=== PATIENT | male | born 1990 | race Two or more races ===

== ENCOUNTER 2020-08-14 13:16 | Emergency (ER) | payer OTHER, SELFPAY ==
[2020-08-14 13:54] VITALS: BP 135/83; PULSE 116; RESP 22; TEMP 37.4; O2SAT 96
--- NOTE | 2020-08-14 14:18 | ED_ITS ---
HPI - URI/Sore Throat General Chief Complaint: Upper Respiratory Symptoms Stated Complaint: FEVER Time Seen by Provider: 08/14/20 14:08 Source: patient Mode of arrival: ambulatory Limitations: no limitations History of Present Illness HPI Narrative: 30-year-old male previously healthy here with subjective fevers, chills, body aches, cough and vomiting for the last 2 days. Denies sick contacts. No abdominal pain, diarrhea, shortness of breath or chest pain. MD elicited complaint: fever and cough Onset (ago): day(s) (2 days ) Consistency: intermittent Severity: mild Able to tolerate fluids by mouth: Yes Exacerbating factors: nothing Relieving factors: nothing Associated symptoms: denies other symptoms Treatments prior to arrival: none Related Data Previous Rx's Medication Instructions Recorded acetaminophen 650 mg PO Q6H PRN #20 cap 08/14/20 ibuprofen 600 mg PO Q8H PRN #20 tab 08/14/20 ondansetron 4 mg PO Q6H PRN #10 tab 08/14/20 Allergies Allergy/AdvReac Type Severity Reaction Status Date / Time SEAFOOD Allergy Unknown SWELLING Uncoded 07/01/20 17:54 Review of Systems Constitutional: Constitutional: Reports no additional constitutional complaints, Reports body ache(s), Reports chills, Reports fever(s), Denies headache(s) and Denies weakness Eyes: Eyes: Reports no additional eye complaints and Denies change in vision ENT: Reports system reviewed and no additional complaints, except as documented, Denies otalgia, Denies headache(s), Denies nasal discharge and Denies sore throat Cardiovascular: Cardiovascular: Reports no additional cardiovascular complaints, Denies chest pain, Denies leg edema and Denies dyspnea Respiratory: Respiratory: Reports no additional respiratory complaints, Reports cough and Denies dyspnea Gastrointestinal: Gastrointestinal: Reports no additional gastrointestinal complaints, Denies abdominal pain, Denies diarrhea, Reports nausea and Reports vomiting Genitourinary: Genitourinary: Reports no additional male genitourinary complaints, Denies urinary frequency, Denies urinary hesitancy, Denies urinary incontinence and Denies urinary urgency Musculoskeletal: Musculoskeletal: Reports no additional musculoskeletal complaints, Denies back pain, Denies arthralgias, Denies joint swelling, Denies numbness and Denies tingling Integumentary/Breasts: Skin/Breast: Reports system reviewed and no additional complaints, except as docu and Denies rash Neurologic: Reports system reviewed and no additional complaints, except as documented, Denies Abnormal speech present, Denies headache(s), Denies numbness, Denies tingling and Denies weakness PMFSH Past Medical History Attestation statement: The following information was validated with the patient. Source: obtained from family and nursing notes reviewed Social History Social History Alcohol intake: never Use of substances other than those prescribed or required for medical reasons: No Advance Directives: No Advance Directives Information Provided: No Physical Exam Vital Signs: Vital Signs: Vital Signs Temp Pulse Resp BP Pulse Ox 08/14/20 14:36 98 08/14/20 13:54 99.4 F 116 H 22 H 135/83 96 Const: General: cooperative, healthy appearing, comfortable and no acute distress Orientation/consciousness: patient oriented x3 Limitations: no limitations HENMT: Head: Yes normal to inspection Ears: hearing grossly normal bilaterally General nose exam: Normal external nose present Face and sinus: Yes normal facial exam Mouth: Normal oral and palatal mucosa present Throat: Yes posterior oropharynx normal Eyes: General: appearance normal, both eyes and all related structures Pupils: Equal, round and reactive pupils present Neck: Neck: Yes normal visual inspection Chest: Chest palpation & inspection: normal inspection of the chest Resp: Effort & Inspection: normal respiratory effort Auscultation: clear to auscultation bilaterally Cardio: Rate: regular rate Rhythm: regular rhythm Peripheral pulses: Peripheral pulses 2+ throughout GI: Inspection: Yes normal to inspection Palpation (GI): Soft to palpation and nontender Auscultation: normal bowel sounds Back/Spine/Pelvis: Thoracic/Lumbar Spine: thoracic and lumbar spine normal to inspection Skin: General skin exam: no rashes or lesions noted Neuro: General: patient oriented x3, no focal motor deficits and normal sensation to monofilament Cranial nerves: Yes Equal, round and reactive pupils present Cognition (Neuro): normal cognition Speech: No Abnormal speech present Gait exam (Neuro): Normal gait present Motor exam (neuro): 5/5 motor strength present throughout Extrem: General: Yes normal to inspection Course Course Course Narrative: Flu-like symptoms x2 days. Well-appearing, mildly tachycardic. Has a low-grade fever. Patient received Zofran sublingual and Tylenol p.o. and was able to tolerate liquids prior to discharge home. COVID testing sent. Reviewed worrisome signs and symptoms when to return to the [facility] department. Comfortable discharge home. Discharge Plan Discharge Clinical Impression: Viral infection Patient Disposition: Home, Self-Care Instructions: Viral Syndrome (ED) Additional Instructions: We have tested you today for COVID 19. Test results take 1-2 days and we will call you with the results negative or positive. Take tylenol or motrin if able as needed for pain or fever. Stay well hydrated with fluids like water, gatorade and/or powerade. Wash hands at home. If living with others try to self isolate if possible. If unable wear a mask around others in your home and wash hands frequently. If COVID test is positive you will need to self isolate for a total of 14 days from when your symptoms started. You may return to work sooner if testing is negative and all symptoms resolved >72 hours. You should return to the emergency department for severe shortness of breath, chest pain or fever which does not respond to both tylenol and motrin at home. Prescriptions: New ibuprofen 600 mg tablet 600 mg PO Q8H PRN (Reason: fever or pain) Qty: 20 RF: 0 acetaminophen 325 mg capsule 650 mg PO Q6H PRN (Reason: fever or pain) Qty: 20 RF: 0 ondansetron 4 mg tablet,disintegrating 4 mg PO Q6H PRN (Reason: nausea and vomiting) Qty: 10 RF: 0 Referrals: Luis Brown MD [Primary Care Provider] - 2 days Interventions: ED Discharge Assessment Last Done: 08/14/20 15:57 Discharge Date/Time: 08/14/20 15:59
[2020-08-14] MEDS: Acetaminophen 325 MG TABLET 650 MG PO (14:33)
[2020-08-14 14:36] VITALS: O2SAT 98
== END 2020-08-14 15:59 | disposition home or self-care (01) ==
PROVIDERS: Nurse Practitioner Family; Emergency Provider Emergency Medicine; PCP Family Medicine
DX: B34.9 Viral infection, unspecified (principal); R50.9 Fever, unspecified; M79.10 Myalgia, unspecified site; Z11.59 Encounter for screening for other viral diseases
CPT/HCPCS: 99283; 99284; U0003

== ENCOUNTER 2020-09-03 08:28 | Outpatient (REF) | payer OTHER, SELFPAY | END 2020-09-03 08:29 | disposition home or self-care (01) | LOC: HO.LAB 08:28 | PROVIDERS: Visit Provider Internal Medicine | DX: Z20.828 Contact with and (suspected) exposure to other viral communicable diseases (principal) | CPT/HCPCS: C9803; U0003 ==

== ENCOUNTER 2020-12-24 10:00 | Outpatient (RCR) | payer OTHER, SELFPAY | END 2021-04-11 14:32 | disposition home or self-care (01) | LOC: HO.PTCHIC 10:00 | PROVIDERS: PCP Nurse Practitioner Family; Visit Provider Orthopaedic Surgery | DX: M25.811 Other specified joint disorders, right shoulder (principal) | CPT/HCPCS: 97110; 97140; 97162 ==

== ENCOUNTER 2021-01-18 10:00 | Outpatient (RCR) | payer OTHER, SELFPAY | END 2021-02-18 11:58 | disposition home or self-care (01) | LOC: HO.PTCHIC 10:00 | PROVIDERS: PCP Nurse Practitioner Family; Visit Provider Physician Assistant | DX: M54.16 Radiculopathy, lumbar region (principal); M54.5 Low back pain | CPT/HCPCS: 97110; 97112; 97140; 97161 ==

== ENCOUNTER 2021-03-22 06:19 | Emergency (ER) | payer OTHER, SELFPAY ==
--- NOTE | ~2021-03-22 | XR_ITS ---
EXAMINATION: XR CHEST CLINICAL INFORMATION: Chest pain. COMPARISON: Multiple priors, most recent chest radiograph dated 12/22/2019. TECHNIQUE: Frontal view of the chest was obtained. FINDINGS: The lungs are clear. The cardiomediastinal silhouette is normal in size. There is no pleural effusion or pneumothorax. No acute osseous abnormality. XR/XR chest 1V IMPRESSION: No acute cardiopulmonary findings.
[2021-03-22 06:28] VITALS: BP 148/83; PULSE 94; RESP 17; TEMP 36.9; O2SAT 96; BMI 29.0
--- NOTE | 2021-03-22 06:35 | ECG_ITS ---
Test Reason : SOB Blood Pressure : / mmHG Vent. Rate : 088 BPM Atrial Rate : 088 BPM P-R Int : 130 ms QRS Dur : 080 ms QT Int : 362 ms P-R-T Axes : 069 076 054 degrees QTc Int : 438 ms Normal sinus rhythm Normal ECG When compared with ECG of 11-SEP-2015 06:02, No significant change was found Referred By: Alessandra Dee Electronically Signed By:PILY MEZA MD
--- NOTE | 2021-03-22 06:35 | ED.CHESTPAIN ---
HPI - Chest Pain General Chief Complaint: Dyspnea Stated Complaint: SOB/Chest pain Time Seen by Provider: 03/22/21 06:34 Source: patient Mode of arrival: ambulatory Limitations: no limitations History of Present Illness MD complaint: other (shortness of breath) Pertinent past history: asthma Onset (ago): day(s) (1) Timing of current episode: constant Prior episodes: No Onset: during rest and during exertion Pain location: substernal Pain radiation: none Severity: mild Quality: heaviness Relieving factors: nothing Exacerbating factors: inspiration Context: recent surgery (had back surgery on Sunday - localized reported his discs were shaved down) Associated symptoms: dyspnea Treatment prior to arrival: other (some mild relief with his INH) Related Data Previous Rx's Medication Instructions Recorded acetaminophen 650 mg PO Q6H PRN #20 cap 08/14/20 ibuprofen 600 mg PO Q8H PRN #20 tab 08/14/20 ondansetron 4 mg PO Q6H PRN #10 tab 08/14/20 albuterol sulfate 2.5 mg INHALATION Q4-6H PRN #75 ml 03/22/21 prednisone 40 mg PO DAILY 4 Days #8 tab 03/22/21 Allergies Allergy/AdvReac Type Severity Reaction Status Date / Time SEAFOOD Allergy Unknown SWELLING Uncoded 07/01/20 17:54 Review of Systems Review of Systems: Constitutional : No Weight loss, No Fever, No Chills ENT/Mouth : No sore throat, No Rhinorrhea Eyes: No Eye Pain, No Swelling Cardiovascular : pos Chest Pain, pos SOB, no Dyspnea on Exertion, No Orthopnea, No Edema, No Palpitations Respiratory : No Cough, No Sputum Gastrointestinal : no Nausea, No Vomiting, No Diarrhea, No abdominal Pain, No Hematochezia, No Melena Genitourinary : No Dysuria, No Urinary Frequency Musculoskeletal : No joint pain, No Myalgias, No Joint Swelling Skin : No Skin Lesions, No rash Neuro : No Weakness, No Numbness, No Dizziness, No Headache Psych : No Anxiety/Panic, No Depression Heme/Lymph: No Bruising, No Lymphadenopathy Endocrine : No Polyuria, No Polydipsia All other systems reviewed and are negative PMFSH Past Medical History Attestation statement: The following information was validated with the patient. Medical History Asthma Herniated disc Surgical History Previous back surgery Social History Social History Alcohol intake: never Patient Tobacco Use Status: Never used Tobacco Use of substances other than those prescribed or required for medical reasons: Yes Substance Use Type: Marijuana Substance Use Frequency: Occasionally Advance Directives: No Physical Exam Vital Signs: Vital Signs: Last Vital Signs Temp 98.4 F 03/22/21 06:28 Pulse 99 03/22/21 08:49 Resp 18 03/22/21 08:00 BP 148/83 H 03/22/21 06:28 Pulse Ox 96 03/22/21 06:28 Body Mass Index 29.0 Appearance: Alert. Oriented X3. No acute distress. Eyes: Pupils equal, round and reactive to light. ENT: Pharynx normal. Neck: Normal inspection. Neck supple. CVS: Normal heart rate and rhythm. Pulses normal. Respiratory: No respiratory distress. Breath sounds decreased throughout, diffuse end exp wheezes Abdomen: Soft and nontender. Back: incision is c/d/i healing well Skin: Skin warm and dry. Normal skin color. Normal skin turgor. Extremities: No lower extremity edema. No calf ttp Neuro: Oriented X 3. No motor deficit. No sensory deficit. Course Course Course Narrative: negative troponin, EKG and ddimer - feeling better with treatments very faint end exp wheezes, no hypoxia, will recheck in a little bit much better, repeat neb 2.5mg ordered clear lungs, stable for DC at this time MDM - Chest Pain MDM Narrative Medical decision making narrative: 30 yo male with c/o dyspnea and chest pain he has wheezes suspect that his asthma is exacerbated will give 5mg neb, low dose IV steroids, IV magnesium given his chest tightness it does seem related to his reactive airways disease but given recent surgery and immobility will obtain EKG, troponin x 1, ddimer - dispo per results and findings. Lab Data Result diagrams: 03/22/21 06:51 03/22/21 06:51 Labs: Lab Results 03/22/21 03/22/21 03/22/21 Range/Units 06:51 06:51 06:51 WBC 14.0 H (4.8-10.8) X10*3/uL RBC 5.19 (4.60-5.80) X10*6/uL Hgb 16.1 (14.0-18.0) g/dl Hct 45.5 (42-52) % MCV 87.7 (80-98) fL MCH 31.0 (27.0-33.0) pg MCHC 35.4 (31.0-36.0) g/dl RDW 12.0 (11.0-16.0) % Plt Count 236 (160-400) X10*3/uL MPV 10.5 (9.4-12.4) fL Immature Gran % (Auto) 0.3 (0.0-0.4) % Neut % (Auto) 76.0 H (45-73) % Lymph % (Auto) 11.5 L (20-40) % [place] % (Auto) 6.9 (2-11) % Eos % (Auto) 5.1 H (0-4) % Baso % (Auto) 0.2 (0-2) % Lymph # (Auto) 1.6 (1.2-4.9) X10*3/uL [place] # (Auto) 1.0 (0.1-1.2) X10*3/uL Eos # (Auto) 0.7 H (0.0-0.4) X10*3/uL Baso # (Auto) 0.0 (0.0-0.2) X10*3/uL Abs Immat Gran (auto) 0.04 H (0.00-0.03) X10*3/uL Absolute Neuts (auto) 10.6 H (2.0-8.3) X10*3/uL Absolute Nucleated RBC 0.000 (0.0-0.012) X10*3/uL Nucleated RBC % (auto) 0.0 (0.0-0.2) /100WBC D-Dimer < 200 NG/ML Sodium 140 (135-145) mmol/L Potassium 4.2 (3.3-5.1) mmol/L Chloride 108 (96-108) mmol/L Carbon Dioxide 26 (22-29) mmol/L Anion Gap 10 L (12-20) BUN 8 L (9-16) mg/dL Creatinine 0.83 (0.5-1.4) mg/dL Estim Creat Clear Calc 160.2 Estimated GFR > 60 Random Glucose 107 (60-115) mg/dL Calcium 9.6 (8.4-10.2) mg/dL Magnesium (1.6-2.6) mg/dL Total Bilirubin (0.0-1.0) mg/dL Direct Bilirubin (0.0-0.5) mg/dL AST (5-37) U/L ALT (0-40) U/L Alkaline Phosphatase (39-117) U/L Troponin I High Sens (<3.5-35.0) ng/L Total Protein (6.5-8.0) g/dL Albumin (3.5-5.0) g/dL Lipase (8-78) U/L 03/22/21 03/22/21 Range/Units 06:51 06:51 WBC (4.8-10.8) X10*3/uL RBC (4.60-5.80) X10*6/uL Hgb (14.0-18.0) g/dl Hct (42-52) % MCV (80-98) fL MCH (27.0-33.0) pg MCHC (31.0-36.0) g/dl RDW (11.0-16.0) % Plt Count (160-400) X10*3/uL MPV (9.4-12.4) fL Immature Gran % (Auto) (0.0-0.4) % Neut % (Auto) (45-73) % Lymph % (Auto) (20-40) % [place] % (Auto) (2-11) % Eos % (Auto) (0-4) % Baso % (Auto) (0-2) % Lymph # (Auto) (1.2-4.9) X10*3/uL [place] # (Auto) (0.1-1.2) X10*3/uL Eos # (Auto) (0.0-0.4) X10*3/uL Baso # (Auto) (0.0-0.2) X10*3/uL Abs Immat Gran (auto) (0.00-0.03) X10*3/uL Absolute Neuts (auto) (2.0-8.3) X10*3/uL Absolute Nucleated RBC (0.0-0.012) X10*3/uL Nucleated RBC % (auto) (0.0-0.2) /100WBC D-Dimer NG/ML Sodium (135-145) mmol/L Potassium (3.3-5.1) mmol/L Chloride (96-108) mmol/L Carbon Dioxide (22-29) mmol/L Anion Gap (12-20) BUN (9-16) mg/dL Creatinine (0.5-1.4) mg/dL Estim Creat Clear Calc Estimated GFR Random Glucose (60-115) mg/dL Calcium (8.4-10.2) mg/dL Magnesium 1.8 (1.6-2.6) mg/dL Total Bilirubin 1.1 H (0.0-1.0) mg/dL Direct Bilirubin 0.3 (0.0-0.5) mg/dL AST 29 (5-37) U/L ALT 63 H (0-40) U/L Alkaline Phosphatase 118 H (39-117) U/L Troponin I High Sens < 3.5 (<3.5-35.0) ng/L Total Protein 6.9 (6.5-8.0) g/dL Albumin 4.4 (3.5-5.0) g/dL Lipase 24 (8-78) U/L ECG Data ECG #1: Attestation: I personally reviewed and interpreted this ECG as follows: ECG interpretation date: 03/22/21 ECG interpretation time: 06:52 Interpretation: Rate: 88 Rhythm: NSR [place]: normam Normal P waves. Normal CHARLES. Normal QRS complex. ST T wave : normal no NIRMAL qTC: normal prior studies: no acute ischemia The study has been interpreted contemporaneously by me. . Discharge Plan Discharge Clinical Impression: Asthma with exacerbation Qualifiers: Asthma severity: moderate Asthma persistence: persistent Qualified Code(s): J45.41 - Moderate persistent asthma with (acute) exacerbation Patient Disposition: Home, Self-Care Instructions: Asthma (ED) Additional Instructions: return to ED for any worsening symptoms or concerns Prescriptions: New prednisone 20 mg tablet 40 mg PO DAILY 4 Days Qty: 8 RF: 0 albuterol sulfate 2.5 mg /3 mL (0.083 %) solution for nebulization 2.5 mg inhalation Q4-6H PRN (Reason: shortness of breath or wheezing) Qty: 75 RF: 0 No Action ibuprofen 600 mg tablet 600 mg PO Q8H PRN (Reason: fever or pain) Qty: 20 RF: 0 acetaminophen 325 mg capsule 650 mg PO Q6H PRN (Reason: fever or pain) Qty: 20 RF: 0 ondansetron 4 mg tablet,disintegrating 4 mg PO Q6H PRN (Reason: nausea and vomiting) Qty: 10 RF: 0 Referrals: Anatoly Messer NP [Primary Care Provider] - 2 days
[2021-03-22 06:55] LABS: MANUAL DIFF FLAG NO
[2021-03-22 06:58] LABS: Basophils Percent Auto 0.2 % (0-2); Eosinophils Absolute Auto 0.7 X10*3/uL (0.0-0.4); Eosinophils Percent Auto 5.1 % (0-4); Hematocrit 45.5 % (42-52); Hemoglobin 16.1 g/dl (14.0-18.0); Imm Gran Abs Auto 0.04 X10*3/uL (0.00-0.03); Imm Gran Pct Auto 0.3 % (0.0-0.4); Lymphocytes Absolute Auto 1.6 X10*3/uL (1.2-4.9); Lymphocytes Percent Auto 11.5 % (20-40); Mean Corpuscular HGB Conc 35.4 g/dl (31.0-36.0); Mean Corpuscular Volume 87.7 fL (80-98); Mean Platelet Volume 10.5 fL (9.4-12.4); Monocytes Percent Auto 6.9 % (2-11); Neutrophils Absolute Auto 10.6 X10*3/uL (2.0-8.3); Platelet Count 236 X10*3/uL (160-400); Red Blood Count 5.19 X10*6/uL (4.60-5.80)
[2021-03-22] MEDS: Albuterol Sulfate (0.083%) 2.5 MG/3 ML VIAL.NEB 5 MG INHALE (06:58)
[2021-03-22 06:59] VITALS: PULSE 84; O2SAT 97
[2021-03-22] MEDS: methylPREDNISolone Sod Succ 125 MG/2 ML VIAL 60 MG IVPUSH (07:08)
[2021-03-22] MEDS: Magnesium Sulfate/H2O 2 GM/50 ML PIGGYBACK IV (07:08)
[2021-03-22 07:13] LABS: D Dimer < 200 NG/ML
[2021-03-22 07:17] LABS: Anion Gap 10 (12-20); Blood Urea Nitrogen 8 mg/dL (9-16); Calcium 9.6 mg/dL (8.4-10.2); Carbon Dioxide 26 mmol/L (22-29); Chloride 108 mmol/L (96-108); Creatinine Clr Calc Pharmacy 160.2; Estimated Glomerular Filt Rate > 60; Glucose Random 107 mg/dL (60-115); Potassium 4.2 mmol/L (3.3-5.1); Sodium 140 mmol/L (135-145)
[2021-03-22 07:20] LABS: Alanine Aminotransferase 63 U/L (0-40); Albumin Level 4.4 g/dL (3.5-5.0); Alkaline Phosphatase 118 U/L (39-117); Aspartate Amino Transferase 29 U/L (5-37); Bilirubin Direct 0.3 mg/dL (0.0-0.5); Bilirubin Total 1.1 mg/dL (0.0-1.0); Lipase 24 U/L (8-78); Magnesium 1.8 mg/dL (1.6-2.6); Total Protein 6.9 g/dL (6.5-8.0)
[2021-03-22 07:23] LABS: Troponin-I High Sensitivity < 3.5 ng/L (<3.5-35.0)
[2021-03-22 08:00] VITALS: PULSE 100; RESP 18
[2021-03-22 08:49] VITALS: PULSE 99; O2SAT 98
[2021-03-22] MEDS: Albuterol Sulfate (0.083%) 2.5 MG/3 ML VIAL.NEB INHALE (08:49)
== END 2021-03-22 09:51 | disposition home or self-care (01) ==
PROVIDERS: Emergency Provider Emergency Medicine; PCP Nurse Practitioner Family
DX: J45.41 Moderate persistent asthma with (acute) exacerbation (principal)
CPT/HCPCS: 36415; 71045; 80048; 80076; 83690; 83735; 84484; 85025; 85379; 93005; 94640; 94644; 96365; 96366; 96374; 99284; 99285; J2930; J3475

== ENCOUNTER 2021-05-10 07:22 | Emergency (ER) | payer OTHER, SELFPAY ==
--- NOTE | 2021-05-10 09:35 | PC.NURSE ---
Called at 0920 and 09 no answer
== END 2021-05-10 09:29 | disposition left against medical advice (07) ==
PROVIDERS: Emergency Provider Emergency Medicine; PCP Nurse Practitioner Family
DX: R22.30 Localized swelling, mass and lump, unspecified upper limb (principal)

== ENCOUNTER 2023-02-22 08:26 | Emergency (ER) | payer OTHER, SELFPAY ==
--- NOTE | ~2023-02-22 | XR_ITS ---
EXAMINATION: XR CHEST CLINICAL INFORMATION: Shortness of breath. COMPARISON: Chest radiograph 03/22/2021. TECHNIQUE: 2 views of the chest were obtained. FINDINGS: Normal appearance of the cardiomediastinal silhouette. Mild perihilar bronchial wall thickening. No focal infiltrate, pleural effusion or pneumothorax. No acute osseous abnormalities. XR/XR chest 2V IMPRESSION: Findings are most suggestive of reactive airways disease or atypical/viral infections with mild perihilar bronchial wall thickening, more noticeable in the right infrahilar region.
--- NOTE | 2023-02-22 08:32 | ECG_ITS ---
Test Reason : CHEST PAIN Blood Pressure : / mmHG Vent. Rate : 067 BPM Atrial Rate : 067 BPM P-R Int : 140 ms QRS Dur : 078 ms QT Int : 396 ms P-R-T Axes : 045 071 048 degrees QTc Int : 418 ms Normal sinus rhythm Normal ECG When compared with ECG of 22-MAR-2021 06:33, No significant change was found Referred By: Generic ED Physician Electronically Signed By:TRA LIRA
[2023-02-22 08:34] VITALS: BP 123/79; PULSE 75; RESP 18; TEMP 36.6; O2SAT 97; BMI 25.3
[2023-02-22 09:02] LABS: MANUAL DIFF FLAG NO
[2023-02-22 09:04] LABS: Basophils Percent Auto 0.4 % (0-2); Eosinophils Percent Auto 12.4 % (0-4); Hematocrit 45.3 % (42.0-52.0); Hemoglobin 15.7 g/dl (14.0-18.0); Imm Gran Abs Auto 0.02 X10*3/uL (0.00-0.03); Imm Gran Pct Auto 0.2 % (0.0-0.4); Lymphocytes Absolute Auto 2.2 X10*3/uL (1.2-4.9); Lymphocytes Percent Auto 26.6 % (20-40); Mean Corpuscular HGB Conc 34.7 g/dl (31.0-36.0); Mean Corpuscular Hemoglobin 30.3 pg (27.0-33.0); Mean Corpuscular Volume 87.5 fL (80.0-98.0); Mean Platelet Volume 10.4 fL (9.4-12.4); Monocytes Absolute Auto 0.4 X10*3/uL (0.1-1.2); Monocytes Percent Auto 5.3 % (2-11); Neutrophils Absolute Auto 4.4 x10*3/uL (2.0-8.3); Neutrophils Percent Auto 55.1 % (45-73); Platelet Count 240 X10*3/uL (160-400); Red Blood Count 5.18 X10*6/uL (4.60-5.80); Red Cell Distribution Width 12.6 % (11.0-16.0); White Blood Count 8.1 X10*3/uL (4.8-10.8)
[2023-02-22] MEDS: Albuterol Sulfate (0.083%) 2.5 MG/3 ML VIAL.NEB 10 MG INHALE (09:06)
[2023-02-22 09:07] VITALS: PULSE 71; RESP 18; O2SAT 97
[2023-02-22] MEDS: methylPREDNISolone Sod Succ 125 MG/2 ML VIAL IVPUSH (09:15)
--- NOTE | 2023-02-22 09:22 | PC.NURSE ---
Pt completed updraft, IV medications administered. Resting comfortably on stretcher, NSR on monitor
[2023-02-22 09:26] LABS: Alanine Aminotransferase 31 U/L (0-40); Albumin Level 4.5 g/dL (3.5-5.0); Alkaline Phosphatase 102 U/L (39-117); Anion Gap 11 (12-20); Aspartate Amino Transferase 24 U/L (5-37); Bilirubin Direct 0.2 mg/dL (0.0-0.5); Blood Urea Nitrogen 11 mg/dL (9-16); Calcium 9.5 mg/dL (8.4-10.2); Carbon Dioxide 24 mmol/L (22-29); Chloride 110 mmol/L (96-108); Creatinine Clr Calc Pharmacy 141.3; Estimated Glomerular Filt Rate > 60; Glucose Random 123 mg/dL (60-115); Potassium 4.4 mmol/L (3.3-5.1); Sodium 141 mmol/L (135-145); Total Protein 6.9 g/dL (6.5-8.0)
[2023-02-22 09:30] LABS: IDNOW Serial# 08D9AD1C; IDNOW Serial# BCCEAD1C; Influenza A Negative (Negative); Influenza B2 Negative (Negative)
[2023-02-22 09:31] LABS: COVID-19 Test Negative (Negative)
[2023-02-22 09:35] LABS: Troponin-I High Sensitivity < 2.7 ng/L (<3.5-35.0)
--- NOTE | 2023-02-22 10:10 | ED.CHESTPAIN ---
HPI - Chest Pain General Chief Complaint: Chest Pain Stated Complaint: SOB/ chest pains Time Seen by Provider: 02/22/23 08:36 Source: patient, RN notes reviewed and old records reviewed Mode of arrival: ambulatory History of Present Illness HPI narrative: 32-year-old male with a past medical history of asthma, presenting to the ED complaining of chest tightness, dry cough, congestion, SOB x few days. Has been using inhalers and neb machine at home without relief. Denies known fever, chills, pedal edema, recent travel, sick contacts MD complaint: chest discomfort Related Data Previous Rx's Medication Instructions Recorded acetaminophen 325 mg capsule 650 mg PO Q6H PRN fever or pain 08/14/20 #20 caps ibuprofen 600 mg tablet 600 mg PO Q8H PRN fever or pain 08/14/20 #20 tabs ondansetron 4 mg disintegrating 4 mg PO Q6H PRN nausea and 08/14/20 tablet vomiting #10 tabs albuterol sulfate 2.5 mg/3 mL 2.5 mg (3 mL) inhalation Q4-6H PRN 03/22/21 (0.083 %) solution for nebulization shortness of breath or wheezing #75 mL prednisone 20 mg tablet 40 mg PO DAILY 4 days #8 tabs 03/22/21 prednisone 20 mg tablet 40 mg PO DAILY 5 days #10 tabs 02/22/23 Allergies Allergy/AdvReac Type Severity Reaction Status Date / Time SEAFOOD Allergy Unknown SWELLING Uncoded 07/01/20 17:54 Review of Systems Review of Systems: Constitutional: No Fever, No Chills, No Fatigue, No Malaise ENT/Mouth: No Ear Pain, No sore throat, No Rhinorrhea, No Swallowing Difficulty Eyes: No Eye Pain, No Swelling, No Redness, No Vision Changes Cardiovascular: + Chest Pain, + SOB, No Edema, No Palpitations Respiratory: + Cough, No Sputum, + Wheezing, No Dyspnea Gastrointestinal: No Nausea, No Vomiting, No Diarrhea, No Constipation, No Abdominal pain Musculoskeletal: No joint pain, No Myalgias, No Joint Swelling Skin: No Skin Lesions, No rash Neuro: No Weakness, No Dizziness, No Headache Yes all other systems are reviewed and are negative Constitutional: Constitutional: Reports as per [facility] Past Medical History Attestation statement: The following information was validated with the patient. Source: old records reviewed Medical History Asthma Herniated disc Surgical History Previous back surgery Social History Social History Alcohol intake: never Patient Tobacco Use Status: Never used Tobacco Substance Use Type: Marijuana Advance Directives: No Advance Directives Information Provided: Yes Physical Exam Vital Signs: Vital Signs: Last Vital Signs Temp 97.9 F 02/22/23 12:11 Pulse 75 02/22/23 12:11 Resp 16 02/22/23 12:11 BP 117/68 02/22/23 12:11 Pulse Ox 97 02/22/23 12:11 O2 Del Method Room Air 02/22/23 12:11 BMI result Body Mass Index 25.3 Const: General: cooperative, healthy appearing and no acute distress Orientation/consciousness: patient oriented x3 Limitations: no limitations HEENT: Head: Yes normal to inspection and Yes atraumatic Ears: hearing grossly normal bilaterally General nose exam: Normal external nose present Face and sinus: Yes normal facial exam Throat: Yes posterior oropharynx normal Eyes: General: appearance normal, both eyes and all related structures EOM: EOMs intact bilaterally Neck: Neck: Yes normal visual inspection and Yes no meningeal signs Resp: Effort & Inspection: normal respiratory effort and no respiratory distress Auscultation: no crackles, no rhonchi, wheezes expiratory wheezes, inspiratory wheezes and throughout and diminished lung sounds bilateral in the lower lung nelson Cardio: Rate: regular rate Heart sounds: S1 normal heart sound present and S2 normal heart sound present GI: Inspection: Yes normal to inspection Palpation (GI): Soft to palpation, nontender, no guarding and not rigid Skin: Rashes: no rashes Wounds: no wounds Neuro: General: patient oriented x3, tone normal and no meningeal signs Gait exam (Neuro): Normal gait present Extrem: General: Yes no pedal edema and Yes no calf tenderness Course Course Course Narrative: -no leukocytosis. Labs otherwise reassuring. Troponin negative. -COVID and influenza negative XR chest 2V IMPRESSION: Findings are most suggestive of reactive airways disease or atypical/viral infections with mild perihilar bronchial wall thickening, more noticeable in the right infrahilar region. -1010--on re-evaluation patient still with inspiratory/expiratory wheeze. Better air movement. Additional albuterol neb and IV magnesium ordered -1143--on re-evaluation patient with good air movement, lungs CTA. Reports symptomatic improvement. Plan for discharge home at this time Results discussed with patient including worrisome signs and symptoms and strict return precautions, and when to return to the emergency department. They verbalized understanding and feel safe for discharge at this time. Medications Administered Discontinued Medications Generic Name Dose Route Start Last Admin Trade Name Freq PRN Reason Stop Dose Admin Albuterol Sulfate 10 mg 02/22/23 08:48 02/22/23 09:06 Albuterol Sulfate (0.083%) 2.5 Mg/3 Ml Vial.Neb INHALE 02/22/23 08:49 10 mg ONCE ONE Administration Albuterol Sulfate 5 mg 02/22/23 10:09 02/22/23 10:42 Albuterol Sulfate (0.083%) 2.5 Mg/3 Ml Vial.Neb INHALE 02/22/23 10:10 5 mg ONCE ONE Administration Magnesium Sulfate 2 gm in 50 mls @ 25 mls/hr 02/22/23 10:09 02/22/23 10:17 Magnesium Sulfate/H2o IV 02/22/23 12:08 25 mls/hr ONCE ONE Administration Methylprednisolone Sodium Succinate 125 mg 02/22/23 08:48 02/22/23 09:15 Methylprednisolone Sod Succ 125 Mg/2 Ml Vial IVPUSH 02/22/23 08:49 125 mg ONCE ONE Administration Medical Decision Making Medical Decision Making MDM Narrative: 32-year-old male with a past medical history of asthma, presenting to the ED complaining of chest tightness, dry cough, congestion, SOB x few days. On exam vital signs stable, NAD, nontoxic appearing, inspiratory and expiratory wheezes noted with diminished lung sounds bibasilarly. No pedal edema/calf tenderness. Concern for asthma exacerbation vs viral illness vs pneumonia. Lower suspicion for PE/CHF Plan: EKG, labs, CXR, COVID/flu testing, IV Solu-Medrol, DuoNeb, re-evaluation Please refer to course for remaining clinical decision making, interpretation of labs/imaging results, and discussions with consultants and/or family members. Differential Diagnosis Differential Diagnoses: The differential diagnosis associated with the presentation includes As above Admission/Observation Consideration of admission/observation: Escalation of care including admission/observation considered Lab Data MDM Lab Attestation statement: I reviewed the patient's lab results. 02/22/23 08:58 02/22/23 08:58 Labs: Lab Results 02/22/23 02/22/23 02/22/23 Range/Units 08:58 08:58 08:58 WBC 8.1 (4.8-10.8) X10*3/uL RBC 5.18 (4.60-5.80) X10*6/uL Hgb 15.7 (14.0-18.0) g/dl Hct 45.3 (42.0-52.0) % MCV 87.5 (80.0-98.0) fL MCH 30.3 (27.0-33.0) pg MCHC 34.7 (31.0-36.0) g/dl RDW 12.6 (11.0-16.0) % Plt Count 240 (160-400) X10*3/uL MPV 10.4 (9.4-12.4) fL Immature Gran % (Auto) 0.2 (0.0-0.4) % Neut % (Auto) 55.1 (45-73) % Lymph % (Auto) 26.6 (20-40) % Coryell % (Auto) 5.3 (2-11) % Eos % (Auto) 12.4 H (0-4) % Baso % (Auto) 0.4 (0-2) % Lymph # (Auto) 2.2 (1.2-4.9) X10*3/uL Coryell # (Auto) 0.4 (0.1-1.2) X10*3/uL Eos # (Auto) 1.0 H (0.0-0.4) X10*3/uL Baso # (Auto) 0.0 (0.0-0.2) X10*3/uL Abs Immat Gran (auto) 0.02 (0.00-0.03) X10*3/uL Absolute Neuts (auto) 4.4 (2.0-8.3) x10*3/uL Absolute Nucleated RBC 0.000 (0.0-0.012) X10*3/uL Nucleated RBC % (auto) 0.0 (0.0-0.2) /100WBC Sodium 141 (135-145) mmol/L Potassium 4.4 (3.3-5.1) mmol/L Chloride 110 H (96-108) mmol/L Carbon Dioxide 24 (22-29) mmol/L Anion Gap 11 L (12-20) BUN 11 (9-16) mg/dL Creatinine 0.84 (0.5-1.4) mg/dL Estim Creat Clear Calc 141.3 Estimated GFR > 60 Random Glucose 123 H (60-115) mg/dL Calcium 9.5 (8.4-10.2) mg/dL Total Bilirubin 1.0 (0.0-1.0) mg/dL Direct Bilirubin 0.2 (0.0-0.5) mg/dL AST 24 (5-37) U/L ALT 31 (0-40) U/L Alkaline Phosphatase 102 (39-117) U/L Troponin I High Sens < 2.7 (<3.5-35.0) ng/L Total Protein 6.9 (6.5-8.0) g/dL Albumin 4.5 (3.5-5.0) g/dL COVID-19 (MARIBELL) (Negative) COVID-19 Clin Com Influenza Type A (REKHA) (Negative) Influenza Type B (REKHA) (Negative) Influenza A & B Note 02/22/23 02/22/23 Range/Units 08:58 08:58 WBC (4.8-10.8) X10*3/uL RBC (4.60-5.80) X10*6/uL Hgb (14.0-18.0) g/dl Hct (42.0-52.0) % MCV (80.0-98.0) fL MCH (27.0-33.0) pg MCHC (31.0-36.0) g/dl RDW (11.0-16.0) % Plt Count (160-400) X10*3/uL MPV (9.4-12.4) fL Immature Gran % (Auto) (0.0-0.4) % Neut % (Auto) (45-73) % Lymph % (Auto) (20-40) % Coryell % (Auto) (2-11) % Eos % (Auto) (0-4) % Baso % (Auto) (0-2) % Lymph # (Auto) (1.2-4.9) X10*3/uL Coryell # (Auto) (0.1-1.2) X10*3/uL Eos # (Auto) (0.0-0.4) X10*3/uL Baso # (Auto) (0.0-0.2) X10*3/uL Abs Immat Gran (auto) (0.00-0.03) X10*3/uL Absolute Neuts (auto) (2.0-8.3) x10*3/uL Absolute Nucleated RBC (0.0-0.012) X10*3/uL Nucleated RBC % (auto) (0.0-0.2) /100WBC Sodium (135-145) mmol/L Potassium (3.3-5.1) mmol/L Chloride (96-108) mmol/L Carbon Dioxide (22-29) mmol/L Anion Gap (12-20) BUN (9-16) mg/dL Creatinine (0.5-1.4) mg/dL Estim Creat Clear Calc Estimated GFR Random Glucose (60-115) mg/dL Calcium (8.4-10.2) mg/dL Total Bilirubin (0.0-1.0) mg/dL Direct Bilirubin (0.0-0.5) mg/dL AST (5-37) U/L ALT (0-40) U/L Alkaline Phosphatase (39-117) U/L Troponin I High Sens (<3.5-35.0) ng/L Total Protein (6.5-8.0) g/dL Albumin (3.5-5.0) g/dL COVID-19 (MARIBELL) Negative (Negative) COVID-19 Clin Com See Note Influenza Type A (REKHA) Negative (Negative) Influenza Type B (REKHA) Negative (Negative) Influenza A & B Note See Note Independent Interpretation I performed an independent interpretation of an: EKG (EKG normal sinus rhythm at a rate of 67. QTC 418. No STEMI. Early repolarization noted) Radiology Impression Discussion of test interpretation with radiology: I have reviewed the radiologist's reading. External Record Review External record reviewed: Inpatient record, Office record, Outpatient record, Prior outpatient labs, Prior outpatient radiology, Primary care record and Outside ED record Tests considered The following testing was considered but not selected: As above Discharge Plan Discharge Clinical Impression: Asthma exacerbation Patient Disposition: Home, Self-Care Instructions: Asthma (DC) Additional Instructions: Your x-ray shows evidence of atypical viral infection/reactive airway disease which is consistent with her asthma Please continue to use your inhalers and nebulizer machine at home In addition take prednisone as prescribed If her symptoms persist or worsen you develop constant worsening chest pain/shortness of breath, fever, swelling in her legs return to the ED Prescriptions: New prednisone 20 mg tablet 40 mg PO DAILY 5 Days Qty: 10 0RF No Action ibuprofen 600 mg tablet 600 mg PO Q8H PRN (Reason: fever or pain) Qty: 20 0RF acetaminophen 325 mg capsule 650 mg PO Q6H PRN (Reason: fever or pain) Qty: 20 0RF ondansetron 4 mg tablet,disintegrating 4 mg PO Q6H PRN (Reason: nausea and vomiting) Qty: 10 0RF prednisone 20 mg tablet 40 mg PO DAILY 4 Days Qty: 8 0RF albuterol sulfate 2.5 mg /3 mL (0.083 %) solution for nebulization 2.5 mg inhalation Q4-6H PRN (Reason: shortness of breath or wheezing) Qty: 75 0RF Referrals: Physician,Unknown J [Primary Care Provider] - 3 days Interventions: ED Discharge Assessment Last Done: 02/22/23 12:16 Discharge Date/Time: 02/22/23 12:16
[2023-02-22] MEDS: Magnesium Sulfate/H2O 2 GM/50 ML PIGGYBACK IV (10:17)
--- NOTE | 2023-02-22 10:23 | PC.NURSE ---
Pt reports feeling better than when he arrived. IV magnesium infusing, warm blanket provided. Pt offering no complaints, call tom within reach
[2023-02-22] MEDS: Albuterol Sulfate (0.083%) 2.5 MG/3 ML VIAL.NEB 5 MG INHALE (10:42)
[2023-02-22 10:43] VITALS: PULSE 86; RESP 16; O2SAT 99
[2023-02-22 12:11] VITALS: BP 117/68; PULSE 75; RESP 16; TEMP 36.6; O2SAT 97
== END 2023-02-22 12:16 | disposition home or self-care (01) ==
PROVIDERS: Physician Assistant; Emergency Provider Emergency Medicine
DX: R07.89 Other chest pain (principal); Z20.822 Contact with and (suspected) exposure to COVID-19; Z20.828 Contact with and (suspected) exposure to other viral communicable diseases; Z79.899 Other long term (current) drug therapy
CPT/HCPCS: 36415; 71046; 80048; 80076; 84484; 85025; 87502; 87635; 93005; 94640; 96374; 96375; 99284; 99285; J2930; J3475

== ENCOUNTER → 2023-02-27 09:30 | Outpatient (BNVA) | payer OTHER, SELFPAY | PROVIDERS: Visit Provider Physician Assistant Medical | DX: S39.012A Strain of muscle, fascia and tendon of lower back, initial encounter (principal); X50.1XXA Overexertion from prolonged static or awkward postures, initial encounter | CPT/HCPCS: 99202 ==

== ENCOUNTER → 2023-03-02 11:10 | Outpatient (BNVA) | payer OTHER, SELFPAY | PROVIDERS: Visit Provider Internal Medicine | DX: S39.012A Strain of muscle, fascia and tendon of lower back, initial encounter (principal); X50.1XXA Overexertion from prolonged static or awkward postures, initial encounter | CPT/HCPCS: 99213 ==

== ENCOUNTER → 2023-03-13 11:10 | Outpatient (BNVA) | payer OTHER, SELFPAY | PROVIDERS: Visit Provider Internal Medicine | DX: S39.012A Strain of muscle, fascia and tendon of lower back, initial encounter (principal); X50.1XXA Overexertion from prolonged static or awkward postures, initial encounter | CPT/HCPCS: 99213 ==

== ENCOUNTER 2023-03-21 10:43 | Outpatient (RCR) | payer OTHER, SELFPAY ==
--- NOTE | 2023-03-21 11:48 | MHC.PT.EP ---
[facility] [place] Office [place] Office [place] Office [address] [phone] F: [phone] F: [phone] F: [phone] F: [phone] Physical Therapy Plan of Care Date of Evaluation: Date of Surgery: Diagnosis: back strain, history of back surgery Assessment: Patient is a 32 year old L handed male who presents with s/s consistent with low back pain/strain. 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 Patient past medical history includes back surgery for disc removal. Current impairments include pain, posture, ROM, strength, flexibility, activity tolerance and functional mobility. Functional limitations include decreased ability to squat, lift, push, pull, sleep, and transfer. Patient is motivated with good rehab potential. Skilled PT will address impairments and functional limitations in order to achieve goals. Frequency and Duration: The patient will be seen 2x/week for 5 weeks Short Term Goals: I with HEP - 2 weeks AROM rotation to 75% pain free - 3 weeks 90/90 lacking 25 or less b/l - 3 weeks [employer] Goals: Oswestry 12% or better - 5 weeks Demo proper lift, squat mechanics - 5 weeks Pain free mosque of ADLs and safe return to work - 5 weeks Treatment Plan: Modalities to reduce pain, spasms and effusion. Manual therapy to restore motion and function. Therapeutic exercise to improve strength and flexibility. Neuromuscular re-education for posture and balance. Therapeutic activities to return to functional activities of daily living. Electronically signed by: Gary Blackwood, PT Please sign and return to therapist. Thank you for your referral.
--- NOTE | 2023-04-11 09:22 | MHC.PT.DC ---
[facility] [place] Office [place] Office [place] Office [address] [phone] F: [phone] F: [phone] F: [phone] F: [phone] Physical Therapy Discharge Report Diagnosis: back strain, history of back surgery Date of Surgery: Date of Evaluation: 03/21/23 Date of Discharge: 04/11/23 Treatments to Date: 1 Cancellations to Date: 3 No Shows to Date: 2 Discharge Status: Visit Non-compliance Discharge Summary: Pt has failed to comply with [facility] attendance policy and no showed 2 appointments with multiple other cancellations. Pt to be d/c at this time. Electronically signed by: Zuleika Page, PT, DPT, ATC Please sign and return to therapist. Thank you for your referral.
== END 2023-04-11 09:23 | disposition home or self-care (01) ==
LOC: HO.PTCHIC 10:43
PROVIDERS: PCP Family Medicine; Visit Provider Internal Medicine
DX: S39.012D Strain of muscle, fascia and tendon of lower back, subsequent encounter (principal)
CPT/HCPCS: 97110; 97161

== ENCOUNTER → 2023-03-26 11:42 | Outpatient (BNVA) | payer OTHER, SELFPAY | PROVIDERS: PCP Family Medicine; Visit Provider Internal Medicine | DX: M54.50 Low back pain, unspecified (principal) | CPT/HCPCS: 99213 ==

== ENCOUNTER → 2023-04-09 11:47 | Outpatient (BNVA) | payer OTHER, SELFPAY | PROVIDERS: PCP Family Medicine; Visit Provider Internal Medicine | DX: S39.012D Strain of muscle, fascia and tendon of lower back, subsequent encounter (principal); X50.1XXD Overexertion from prolonged static or awkward postures, subsequent encounter | CPT/HCPCS: 99213 ==

== ENCOUNTER → 2023-04-19 11:46 | Outpatient (BNVA) | payer OTHER, SELFPAY | PROVIDERS: PCP Family Medicine; Visit Provider Internal Medicine | DX: S39.012D Strain of muscle, fascia and tendon of lower back, subsequent encounter (principal); X50.1XXD Overexertion from prolonged static or awkward postures, subsequent encounter | CPT/HCPCS: 99213 ==

== ENCOUNTER → 2023-05-16 09:36 | Outpatient (BNVA) | payer OTHER, SELFPAY | PROVIDERS: PCP Family Medicine; Visit Provider Physician Assistant Medical | DX: S39.012D Strain of muscle, fascia and tendon of lower back, subsequent encounter (principal); X50.1XXD Overexertion from prolonged static or awkward postures, subsequent encounter | CPT/HCPCS: 99213 ==

== ENCOUNTER → 2023-05-21 15:47 | Outpatient (BNVA) | payer OTHER, SELFPAY | PROVIDERS: PCP Family Medicine; Visit Provider Physician Assistant Medical | DX: S39.012D Strain of muscle, fascia and tendon of lower back, subsequent encounter (principal); X50.1XXD Overexertion from prolonged static or awkward postures, subsequent encounter; M46.1 Sacroiliitis, not elsewhere classified | CPT/HCPCS: 99213 ==

== ENCOUNTER → 2023-07-18 09:17 | Outpatient (BNVA) | payer OTHER, SELFPAY | PROVIDERS: PCP Family Medicine; Visit Provider Physician Assistant | DX: S00.462A Insect bite (nonvenomous) of left ear, initial encounter (principal); S00.461A Insect bite (nonvenomous) of right ear, initial encounter; T63.481A Toxic effect of venom of other arthropod, accidental (unintentional), initial encounter | CPT/HCPCS: 99203 ==

== ENCOUNTER → 2024-10-23 11:57 | Outpatient (BNVA) | payer OTHER, SELFPAY | PROVIDERS: PCP Family Medicine; Visit Provider Physician Assistant | DX: S39.012A Strain of muscle, fascia and tendon of lower back, initial encounter (principal); X50.3XXA Overexertion from repetitive movements, initial encounter | CPT/HCPCS: 99203 ==

== ENCOUNTER → 2024-10-28 09:43 | Outpatient (BNVA) | payer OTHER, SELFPAY | PROVIDERS: PCP Family Medicine; Visit Provider Physician Assistant Medical | DX: S39.012A Strain of muscle, fascia and tendon of lower back, initial encounter (principal); X50.3XXA Overexertion from repetitive movements, initial encounter | CPT/HCPCS: 99213 ==

== ENCOUNTER → 2024-10-31 08:52 | Outpatient (BNVA) | payer OTHER, SELFPAY | PROVIDERS: PCP Family Medicine; Visit Provider Physician Assistant | DX: S39.012A Strain of muscle, fascia and tendon of lower back, initial encounter (principal); X50.3XXA Overexertion from repetitive movements, initial encounter; Z02.79 Encounter for issue of other medical certificate | CPT/HCPCS: 99213 ==

== ENCOUNTER → 2025-01-30 12:50 | Outpatient (BNVA) | payer SELFPAY | PROVIDERS: PCP Family Medicine; Visit Provider Physician Assistant Medical | DX: Z02.79 Encounter for issue of other medical certificate (principal) ==

== ENCOUNTER → 2025-06-18 08:21 | Outpatient (BNVA) | payer OTHER, SELFPAY | PROVIDERS: PCP Family Medicine; Visit Provider Emergency Medicine | DX: S39.012A Strain of muscle, fascia and tendon of lower back, initial encounter (principal); X50.0XXA Overexertion from strenuous movement or load, initial encounter | CPT/HCPCS: 99203 ==

== ENCOUNTER → 2025-06-25 08:58 | Outpatient (BNVA) | payer OTHER, SELFPAY | PROVIDERS: PCP Family Medicine; Visit Provider Emergency Medicine | DX: M54.50 Low back pain, unspecified (principal); M54.16 Radiculopathy, lumbar region | CPT/HCPCS: 72100; 99215 ==

== ENCOUNTER 2025-06-30 14:00 | Emergency (ER) | payer OTHER, SELFPAY ==
--- NOTE | 2025-06-30 14:22 | ED_ITS ---
HPI - Back Pain/Injury General Chief Complaint: Back Pain/Injury Stated Complaint: back pain rad down legs Time Seen by Provider: 06/30/25 14:28 Source: patient and RN notes reviewed Mode of arrival: ambulatory Limitations: no limitations History of Present Illness ED Provider: Sandhya Deshpande PA-C HPI Narrative: This is a [id number], with a hx of asthma, who presents to the ER with a complaint of low back pain x 2 week. Reports pulling back a barrel of trash while he was at work and the way he tipped the barrel, developed sharp pain in his back. Already had xrays at [facility]. Reports worsening pain. Reports he was given Soma, but ran out. He denies any new trauma or injury. Denies any history of IVDA. No fevers, chills, chest pain, shortness for breath, abdominal pain, urinary symptoms. Denies any urinary or bowel retention or incontinence. Denies taking any medications at home to treat his current symptoms. He states that he is awaiting to get an MRI. No other complaints or concerns at this time. MD elicited complaint: back pain Pertinent past history: prior back pain Similar Symptoms Previously: Yes Quality: aching Location: lumbar spine Exacerbating factors: none Relieving factors: immobilization and sitting upright Work related injury: Yes Related Data Previous Rx's ?Medication ?Instructions ?Recorded albuterol sulfate 2.5 mg/3 mL 2.5 mg (3 mL) inhalation Q4-6H PRN 03/22/21 (0.083 %) solution for nebulization shortness of breat h or wheezing #75 mL prednisone 10 mg tablet 10 mg PO DIRECTED 10 days #30 10/28/24 tabs carisoprodol 350 mg tablet (Soma) 350 mg PO TID PRN sp asms #14 tabs 06/18/25 oxycodone-acetaminophen 5 mg-325 1 tab PO Q8H PRN pain #14 tabs 06/18/25 mg tablet (Percocet) acetaminophen 500 mg tablet 1,000 mg (2 x 500 mg) PO Q 8H PRN 06/30/25 (Tylenol Extra Strength) pain #30 tabs ibuprofen 600 mg tablet 600 mg PO Q6H PRN pain #30 t abs 06/30/25 lidocaine 5 % topical patch 1 patch topical DAILY #30 ea 06/30/25 methocarbamol 750 mg tablet 750 mg PO TID 3 days #9 ta bs 06/30/25 prednisone 20 mg tablet 40 mg (2 x 20 mg) PO DAILY 5 days 06/30/25 #10 tabs Allergies Allergy/AdvReac Type Severity Reaction Status Date / Time SEAFOOD Allergy Unknown SWELLING Uncoded 06/30/25 14:24 Review of Systems Review of Systems: Constitutional : No Fever, No Chills ENT/Mouth : No sore throat, No Rhinorrhea Eyes: No Eye Pain, No Swelling, No Redness Cardiovascular : No Chest Pain, No SOB Respiratory : No Cough, No Sputum Gastrointestinal : No Nausea, No Vomiting, No Diarrhea, No abdominal Pain Genitourinary : No Dysuria, No Hematuria Musculoskeletal : No joint pain, No Myalgias, No Joint Swelling Skin : No Skin Lesions Neuro : No Weakness, No Numbness, No Headache All other systems reviewed and are negative Yes all other systems are reviewed and are negative Constitutional: Constitutional: Reports as per [facility] Past Medical History Medical History Asthma Herniated disc Surgical History Previous back surgery Social History Social History Alcohol intake: never Patient Tobacco Use Status: Never used Tobacco Substance Use Type: Marijuana Advance Directives: No Advance Directives Information Provided: Yes Physical Exam Exam: Exam: General: Awake, alert, and oriented X3. No acute distress. HEENT: Normal inspection CVS: Normal heart rate and rhythm. Pulses normal. Respiratory: No respiratory distress Skin: Warm, dry, no rashes noted to exposed skin. Normal skin color. Normal skin turgor. Extremities: No midline spine tenderness on examination, tenderness palpation along the lumbar musculature, no spasms appreciated. Strength 5/5 in lower extremities. Distal sensation circulation intact. Neuro: Oriented X 3. No motor deficit. No sensory deficit. Vital Signs: Vital Signs: Last Vital Signs Temp 98.2 F 06/30/25 16:00 Pulse 83 06/30/25 16:00 Resp 18 06/30/25 16:00 BP 169/95 H 06/30/25 16:00 Pulse Ox 96 06/30/25 16:00 O2 Del Method Room Air 06/30/25 16:00 BMI result Body Mass Index 25.9 Medications Administered Discontinued Medications Generic Name Dose Route Start Last Admin Trade Name Ibis PRN Reason Stop Dose Admin Ketorolac Tromethamine 30 mg 06/30/25 14:28 06/30/25 14:35 Ketorolac Tromethamine 30 Mg/Ml Vial IM 06/30/25 14:29 30 mg ONCE ONE Administration Medical Decision Making Medical Decision Making [facility] Narrative: This is a 35-year-old male who presents emergency department with complaints of low back pain radiating down bilateral legs for the last 2 weeks. [facility], as awaiting a MRI to be performed. No new injury, he states that he is here as he ran out of [facility], and still continues to have pain. Discussed with patient that re-x-ray in patient does not indicated at this time, he will [facility]-up [facility]. Will treat with course of prednisone, we will also trial Robaxin. Encouraged to call [facility] for further management. He understands and agrees with plan. This patient presents with back pain most consistent with lumbar radiculopathy. Differential diagnoses includes lumbago versus musculoskeletal spasm / strain versus sciatica.No back pain red flags on history or physical. Presentation not consistent with malignancy (lack of history of malignancy, lack of B symptoms), fracture (no trauma, no bony tenderness to palpation), cauda equina (no bowel or urinary incontinence/retention, no saddle anesthesia, no distal weakness),renal colic, pyelonephritis (afebrile, no CVAT, no urinary symptoms). Given the clinical picture, no indication for imaging at this time. Differential Diagnosis Differential Diagnoses: The differential diagnosis associated with the presentation includes See above Discharge Plan Discharge Clinical Impression: Lumbar radiculopathy Patient Disposition: Home, Self-Care Instructions: Lumbar Radiculopathy (ED), Lower Back Exercises (ED) Additional Instructions: You were seen in the emergency department due to back pain. Continue following up with [facility]. Given that you have had no new injury, we are deferring any additional imaging at this time. You medicated you with Toradol, this is an anti-inflammatory. If you want to take ibuprofen, please wait until 10:00 p.m. tonight as Toradol and ibuprofen are very similar medication. Take prednisone as directed, finish the entire course. Take Tylenol 1000 mg every 8 hours. You may also take ibuprofen as needed for pain, you can take this every 6 hours. Methocarbamol is a muscle relaxants, please be advised that this can cause drowsiness, do not drink alcohol or drive while taking this medication. If any new or worsening symptoms occur including but not limited to worsening pain, severe chest pain, shortness of breath, loss of bladder or bowel control, please seek emergent care. Prescriptions: New prednisone 20 mg tablet 40 mg PO DAILY 5 Days Qty: 10 0RF methocarbamol 750 mg tablet 750 mg PO TID 3 Days Qty: 9 0RF ibuprofen 600 mg tablet 600 mg PO Q6H PRN (Reason: pain) Qty: 30 0RF acetaminophen [Tylenol Extra Strength] 500 mg tablet 1,000 mg PO Q8H PRN (Reason: pain) Qty: 30 0RF lidocaine 5 % adhesive patch,medicated 1 patch topical DAILY Qty: 30 0RF Rx Instructions: leave on most painful area for up to 12 hrs No Action albuterol sulfate 2.5 mg /3 mL (0.083 %) solution for nebulization 2.5 mg inhalation Q4-6H PRN (Reason: shortness of breath or wheezing) Qty: 75 0RF prednisone 10 mg tablet 10 mg PO DIRECTED 10 Days Qty: 30 0RF Rx Instructions: see taper instructions (5,5,4,4,3,3,2,2,1,1) carisoprodol [Soma] 350 mg tablet 350 mg PO TID PRN (Reason: spasms) Qty: 14 0RF oxycodone-acetaminophen [Percocet] 5-325 mg tablet 1 tab PO Q8H PRN (Reason: pain) Qty: 14 0RF Rx Instructions: Partial Fill upon patient request. Interventions: ED Discharge Assessment Last Done: 06/30/25 16:00 Discharge Date/Time: 06/30/25 16:01 Print Language: Bolivian
[2025-06-30 14:23] VITALS: BP 169/95; PULSE 83; RESP 18; TEMP 36.8; O2SAT 96; BMI 25.9
[2025-06-30 16:00] VITALS: BP 169/95; PULSE 83; RESP 18; TEMP 36.8; O2SAT 96
--- OUTSIDE RECORDS SUMMARY | 2025-06-30 18:24 | XMS_ITS | Encounter Summary ---
Author Organization [facility] Address [address] [place] [address] Phone Care Team Providers Care Health Information Assistant Name Role Phone Pcp, Unknown Primary Care Provider Anatoly Sullivan TOLL REPAIRER CENTRAL OFFICE Primary Care Provider [phone] Luis Brown MD Primary Care Provide r Encounter Details Date Type Department Care Team ([facility] st Contact Info) Description 11/24/2020 Procedure Pass [facility], [address] [address] Social History Tobacco Use Types Packs/Day Years Used Date Smoking Tobacco: Never Assessed Sex and Gender Information Value Date Recorded Sex Assigned at Male 05/10/2021 9:33 AM EDT Legal Sex Male 2:58 PM EST Gender Identity Male 05/10/2021 9:33 AM EDT Sexual Orientation Not on file documented as of this encounter Plan of Treatment Not on file documented as of this encounter Visit Diagnoses Not on filedocumented in this encounter Care Teams Health Information Assistant Relationship Specialty Start Date End Date Pcp, Unknown PCP - General 12/02/20 12/15/20 Anatoly Messer NP [address] [place] [address] PCP - General Family Medicine 12/16/20 06/22/22 Luis Brown MD [address] [address] PCP - General Family Medicine 06/23/22 documented as of this encounter Additional Source Comments The information contained in this document represents components of the legal health record. It is not the complete legal health record.[facility]
--- OUTSIDE RECORDS SUMMARY | 2025-06-30 18:24 | XMS_ITS | Encounter Summary ---
Author Organization [facility] Address [address] [place] [address] [place] [address] Phone Care Team Providers Care Coal Tram Driver Name Role Phone Luis Brown MD Primary Care Provide r Encounter Details Date Type Department Care Team ([facility] st Contact Info) Description 06/23/2022 Procedure Pass [facility] [place], Ct Scan - [address] [address] Social History Tobacco Use Types Packs/Day Years Used Date Smoking Tobacco: Never Smokeless Tobacco: Never Alcohol Use Standard Drinks/Week Comments Never 0 (1 standard drink = 0.6 oz pur e alcohol) Sex and Gender Information Value Date Recorded Sex Assigned at Male 05/10/2021 9:33 AM EDT Legal Sex Male 2:58 PM EST Gender Identity Male 05/10/2021 9:33 AM EDT Sexual Orientation Not on file documented as of this encounter Plan of Treatment Not on file documented as of this encounter Visit Diagnoses Not on filedocumented in this encounter Care Teams Coal Tram Driver Relationship Specialty Start Date End Date Luis Brown MD [address] [facility] [address] [place] [address] PCP - General Family Medicine 06/23/22 documented as of this encounter Additional Source Comments The information contained in this document represents components of the legal health record. It is not the complete legal health record.[facility]
--- OUTSIDE RECORDS SUMMARY | 2025-06-30 18:24 | XMS_ITS | Encounter Summary ---
Author Organization [facility] Address [address] [place] [address] Phone Care Team Providers Care Corporate Real Estate Manager Name Role Phone Anatoly Messer NP Primary Care Provider [phone]- [phone] Luis Brown MD Primary Care Provide r Encounter Details Date Type Department Care Team (Late st Contact Info) Description 05/10/2021 Procedure Pass [facility], Ct Scan - [facility] [address] [place] [address] Social History Tobacco Use Types Packs/Day Years [...] on file documented as of this encounter Functional Status * Calculated C-SSRS Risk Score (Lifetime/Recent) Answer Date of Assessment Author No Risk Indicated 05/10/2021 9:32 AM EDT Cheyenne Dixon RN * Mccreary Suicide Severity Rating Scale (Screener/Recent Self-Report) Question Answer Date of Assessment Author 1. Wish to be (Past 1 Month) No 021 9:32 AM EDT Cheyenne Dixon, RN 2. Non-Specific Active Suici khris Thoughts (Past 1 Month) No 05/10/2021 9:32 AM EDT Cheyenne Dixon, BRENDA 6. Suicidal Behavior (Lifetime) No 1 9:32 AM Cheyenne Veronica RN documented as of this encounter Plan of Treatment Not on file documented as of this encounter Visit Diagnoses Not on filedocumented in this encounter Care Teams Corporate Real Estate Manager Relationship Specialty Start Date End Date Anatoly Messer NP [address] [place] [address] PCP - General Family Medicine 12/16/20 06/22/22 Luis Brown MD [address] [address] PCP - General Family Medicine 06/23/22 documented as of this encounter Additional Source Comments The information contained in this document represents components of the legal health record. It is not the complete legal health record.[facility]
--- OUTSIDE RECORDS SUMMARY | 2025-06-30 18:24 | XMS_ITS | Clinical Summary ---
Author Organization [facility] Address [address] [place] [address] Phone Care Team Providers Care Manager Dish Name Role Phone Luis Brown MD Primary Care Provide r Allergies Active Allergy Reactions Criticality Noted Date Comments Fish Derived 05/10/2021 Medications montelukast sodium (SINGULAIR ORAL) Take by mouth. Active albuterol 90 mcg/actuation inhaler Inhale 2 puffs into the lungs every 6 (six) hours as needed for wheezing. Active morphine (MSIR) 15 MG tablet Take 1 tablet (15 mg total) by mouth every 4 (four) hours as needed for pain (specific location in comments) (left hand pain). Partial fill ok 10 tablet 05/10/2021 Active cyclobenzaprine (FLEXERIL) 10 MG tablet Take 1 tablet (10 mg total) by mouth 3 (three) times a day as needed. 10 tablet 01/30/2022 Active Active Problems No known active problems Social History Tobacco Use Types Packs/Day Years Used Date Smoking Tobacco: Never Smokeless Tobacco: Never Alcohol Use Standard Drinks/Week Comments Never 0 (1 standard drink = 0.6 oz pur e alcohol) Education Answer Date Recorded Are you interested in more education? Not on sanjeev e 02/09/2023 Are you concerned about learning? Not on file 02/09/2023 No 02/09/2023 No 02/09/2023 Digital Access Answer Date Recorded No 03/10/2023 No 03/10/2023 No 03/10/2023 Reliable internet access at home? Not on file 03/10/2023 Device with a working camera? Not on file Sex and Gender Information Value Date Recorded Sex Assigned at Male 05/10/2021 9:33 AM EDT Legal Sex Male 2:58 PM EST Gender Identity Male 05/10/2021 9:33 AM EDT Sexual Orientation Not on file Last Filed Vital Signs Vital Sign Reading Time Taken Comments Blood Pressure 127/73 06/23/2022 6:11 AM EDT Pulse 68 06/23/2022 6:11 AM EDT Temperature 36.9 C (98.4 F) 06/23/2022 6:11 AM EDT Respiratory Rate 18 06/23/2022 6:11 AM EDT Oxygen Saturation 98% 06/23/2022 6:11 AM EDT Inhaled Oxygen Concentration - - Weight 90.7 kg (200 lb) 06/22/2022 7:14 PM EDT Height 185.4 cm (6' 1 ) 06/22/2022 7:14 PM EDT Body Mass Index 26.39 06/22/2022 7:14 PM EDT Plan of Treatment Health Maintenance Due Date Last Done Comments Adult Td,Tdap Booster 1989 LIPID PANEL 1989 DEPRESSION SCREENING 2001 HEPATITIS C SCREENING 2007 HIV ONE-TIME SCREENING (18-6 5 YEARS) 2007 INFLUENZA VACCINE (#1) 2025 COVID-19 VACCINE (2 - 2024-2 6 season) 2025 07/12/2021 SCREENING FOR DIABETES 06/22/2025 06/22/2022 PNEUMOCOCCAL VACCINES (0-49 years) Aged Out 2014 No longer eligible based on patient's age to complete this topic SMOKING STATUS SCREENING (On ce After 26 Yrs) Completed 05/13/2021 HEPATITIS A VACCINES Aged Out No long er eligible based on patient's age to complete this topic HIB VACCINES Aged Out No longer eligi ble based on patient's age to complete this topic MENINGOCOCCAL VACCINES (ACWY) Aged Out No longer eligible based on patient's age to complete this topic MENINGOCOCCAL VACCINES (B) Aged Out N o longer eligible based on patient's age to complete this topic Medical Devices Not on file Insurance [employer] [place] [employer] [place] [employer] [employer] [place] [employer] [place]icient [employer] [place] [employer] [place] [place], [place] [address] [facility] Advanced PhotonixJOINT [facility] Care Teams Manager Dish Relationship Specialty Start Date End Date [facility] [address] [address] PCP - General Family Medicine 06/23/22 Additional Source Comments The information contained in this document represents components of the legal health record. It is not the complete legal health record.[facility]
== END 2025-06-30 16:01 | disposition home or self-care (01) ==
PROVIDERS: Emergency Provider Emergency Medicine; PCP Family Medicine
DX: M54.16 Radiculopathy, lumbar region (principal)
CPT/HCPCS: 96372; 99283; 99284; J1885

== ENCOUNTER 2025-07-15 08:26 | Outpatient (REF) | payer OTHER, SELFPAY ==
--- NOTE | ~2025-07-15 | MR_ITS ---
EXAMINATION: MR LUMBAR SPINE WITHOUT AND WITH CONTRAST CLINICAL INFORMATION: Low back pain radiating to right lower extremity. COMPARISON: None available. TECHNIQUE: MRI of the lumbar spine was obtained using routine sequences with and without contrast. Intravenous contrast: Gadolinium based (Gadavist) 9.0 mL. No reported immediate complications. FINDINGS: Last rib-bearing vertebra labeled T12. No bone marrow STIR signal abnormality. Small marginal osteophyte formation at multiple levels lower thoracic spine and to a lesser extent lumbar spine. Disc desiccation and decreased intervertebral disc height at L5-S1 and L4-5 levels. Modic type II endplate changes at T11-T12, T12-L1 and L4-5 level. Normal alignment. Conus medullaris ends at pedicle of L1 with normal signal. There is a mild prominent the enhancement of the ventral epidural compartment of the central spinal canal at L5-S1 without fluid collection. There is a 7 mm nonenhancing hypointense T1 and T2 signal dislodged in the right midline of the ventral epidural/extradural compartment of the central spinal canal at L5-S1. T12-L1: No disc herniation. No neuroforamina stenosis. L1-2: Broad-based disc bulging. No central spinal canal or neuroforamina stenosis. L2-3: Broad-based disc bulging. No central spinal canal or neuroforamina stenosis. L3-4: Broad-based disc bulging. No central spinal canal stenosis. Bilateral neuroforamina narrowing. Bilateral facet joint hypertrophy. L4-5: Central broad-based disc herniation abutting the L5 nerve roots on the lateral recesses. Bilateral facet joint hypertrophy resulting in bilateral neuroforamina narrowing. L5-S1: Right hemilaminectomy. Central broad-based disc herniation. There is a 7 mm nonenhancing isointense T2 hypointense T1 soft tissue signal abnormality in the right midline ventral epidural/extradural compartment of the central spinal canal abutting the right S1 and S2 on the lateral recesses. Bilateral facet joint hypertrophy. Right neuroforamina and stenosis at encroaching the right L5 exiting nerve root. Cystic lesions in the left kidney. MR/MR lumbar spine wo/w con IMPRESSION: 7 mm disloged disc fragment, central/right midline epidural/extradural ventral central spinal canal at L5-S1 abutting/encroaching right S1 and S2 nerve roots. Central to the left midline broad-based disc herniation L4-5 encroaching left L5 nerve roots. Electronically signed by: Kieran Garduno MD 07/15/2025 09:59 AM EDT
--- OUTSIDE RECORDS SUMMARY | 2025-07-15 08:57 | XMS_ITS | Encounter Summary ---
Author Organization [facility] Address [address] [place] [address] Phone Care Team Providers Care Package Center Supervisor Name Role Phone Pcp, Unknown Primary Care Provider Anatoly Sullivan FINAL RAIL CUTTER Primary Care Provider [phone]- [phone] Luis Brown MD Primary Care Provide r Encounter Details Date Type Department Care Team ([facility] st Contact Info) Description 11/24/2020 Procedure Pass [facility], [address] [address] Social History Tobacco Use Types Packs/Day Years [...] on filedocumented in this encounter Care Teams Package Center Supervisor Relationship Specialty Start Date End Date Pcp, Unknown PCP - General 12/02/20 12/15/20 Anatoly Messer NP [address] [place] [address] PCP - General Family Medicine 12/16/20 06/22/22 Luis Brown MD [address] [address] PCP - General Family Medicine 06/23/22 documented as of this encounter Additional Source Comments The information contained in this document represents components of the legal health record. It is not the complete legal health record.[facility]
--- OUTSIDE RECORDS SUMMARY | 2025-07-15 08:57 | XMS_ITS | Encounter Summary ---
Author Organization [facility] Address [address] [place] [address] Phone Care Team Providers Care Retort Furnace Operator Name Role Phone Anatoly Messer NP Primary Care Provider [phone]- [phone] Luis Brown MD Primary Care Provide r Encounter Details Date Type Department Care Team (Late st Contact Info) Description 05/10/2021 Procedure Pass [facility], Ct Scan - [facility] [address] [place] [address] Social History Tobacco Use Types Packs/Day Years [...] 9:32 AM EDT Cheyenne Dixon RN * Weber Suicide Severity Rating Scale (Screener/Recent Self-Report) Question [...] on filedocumented in this encounter Care Teams Retort Furnace Operator Relationship Specialty Start Date End Date Anatoly Messer NP [address] [place] [address] PCP - General Family Medicine 12/16/20 06/22/22 Luis Brown MD [address] [address] PCP - General Family Medicine 06/23/22 documented as of this encounter Additional Source Comments The information contained in this document represents components of the legal health record. It is not the complete legal health record.[facility]
--- OUTSIDE RECORDS SUMMARY | 2025-07-15 08:57 | XMS_ITS | Encounter Summary ---
Author Organization [facility] Address [address] [place] [address] [place] [address] Phone Care Team Providers Care Duct Layer Helper Name Role Phone Luis Brown MD Primary Care Provide r Encounter Details Date Type Department Care Team ([facility] st Contact Info) Description 06/23/2022 Procedure Pass [facility], Ct Scan - [address] [address] Social History Tobacco Use Types Packs/Day Years [...] on filedocumented in this encounter Care Teams Duct Layer Helper Relationship Specialty Start Date End Date Luis Brown MD [address] [facility] [address] [place] [address] PCP - General Family Medicine 06/23/22 documented as of this encounter Additional Source Comments The information contained in this document represents components of the legal health record. It is not the complete legal health record.[facility]
--- OUTSIDE RECORDS SUMMARY | 2025-07-15 08:57 | XMS_ITS | Clinical Summary ---
Author Organization [facility] Address [address] [place] [address] Phone Care Team Providers Care Transport Aide Name Role Phone Luis Brown MD Primary [...] (2 - 2024-2 6 season) 2025 07/12/2021 PNEUMOCOCCAL VACCINES (0-49 years) Aged Out 2014 [...] topic Medical Devices Not on file Insurance [employer] [place] [employer] [place] [employer] [place] [employer] [place] [employer]'s [employer]'s [employer] WhereInFair [facility] Care Teams Transport Aide Relationship Specialty Start Date End Date Luis Brown MD [address] [address] PCP - General Family Medicine 06/23/22 Additional Source Comments The information contained in this document represents components of the legal health record. It is not the complete legal health record.[facility]
== END 2025-07-15 08:27 | disposition home or self-care (01) ==
LOC: HO.MRI 08:26
PROVIDERS: Visit Provider Emergency Medicine
DX: M54.50 Low back pain, unspecified (principal)
CPT/HCPCS: 72158; A9585

== ENCOUNTER → 2025-07-15 08:37 | Outpatient (BNV) | payer OTHER, SELFPAY | PROVIDERS: Visit Provider Radiology Diagnostic Radiology | DX: M51.17 Intervertebral disc disorders with radiculopathy, lumbosacral region (principal) | CPT/HCPCS: 72158 ==

== ENCOUNTER → 2025-08-13 08:55 | Outpatient (BNVA) | payer OTHER, SELFPAY | PROVIDERS: Visit Provider Emergency Medicine | DX: M51.27 Other intervertebral disc displacement, lumbosacral region (principal) | CPT/HCPCS: 99213 ==

== ENCOUNTER 2025-09-09 08:44 | Outpatient (RCR) | payer OTHER, SELFPAY ==
--- NOTE | 2025-08-18 15:31 | MHC.PT.EP ---
[facility] [place] [facility] [place] [facility] [place] [facility] [address] Thania Tena [address] [phone] F: [phone] F: [phone] F: [phone] F: [phone] Physical Therapy Plan of Care Date of Evaluation: 08/18/25 Date of Surgery: N/A Diagnosis: L3 disc herniation (RL) Assessment: pt is a 35 y/o male presenting to physical therapy w/ referring diagnosis of L3 disc herniation. Impairments include pain, decreased range of motion, decreased strength, impaired functional mobility, impaired postural awareness, and altered ambulation mechanics. pt is a fair candidate for skilled PT due to age, potential remediation of impairments, typical disease/condition progression and prognosis, comorbidities, and motivation. pt would benefit from skilled PT intervention to provide a tailored strengthening and stretching exercise program, functional training, gait training, postural re-training, neuromuscular re-education, modalities as needed for pain, equipment safety demonstration. Frequency and Duration: The patient will be seen 2x/wk for 4 wks Short Term Goals: pt will be I w/ HEP to promote self-management of condition. pt will demo proper sitting posture w/ lumbar roll to promote neutral spine w/ seated ADLs. Integration Developer Goals: pt will report a statistically significant improvement in self-reported outcome measure, Dimitri, to promote return to PLOF. pt will demo neutral spine w/ lifting >50# x3 reps to promote return to work-related tasks. Treatment Plan: Modalities to reduce pain, spasms and effusion. Manual therapy to restore motion and function. Therapeutic exercise to improve strength and flexibility. Neuromuscular re-education for posture and balance. Therapeutic activities to return to functional activities of daily living. Electronically signed by: Jennifer Villarreal PT, DPT Please sign and return to therapist. Thank you for your referral.
--- NOTE | 2025-09-09 13:03 | MHC.PT.DC ---
[facility] [place] Office [place] Office [place] Office [address] Thania Tena [address] [phone] F: [phone] F: [phone] F: [phone] F: [phone] Physical Therapy Discharge Report Diagnosis: L3 disc herniation (RL) Date of Surgery: N/A Date of Evaluation: 08/18/25 Date of Discharge: 09/09/25 Treatments to Date: 8 Cancellations to Date: 2 No Shows to Date: 0 Discharge Status: Improved Function Independent with HEP Recommend MD Follow-up Discharge Summary: The patient has been consistently reporting less intense back or radicular pain. He was instructed in proper lifting mechanics and demonstrates good form. He has achieved all goals established at the initial evaluation. He was informed by his surgeon's office he was expected to have his procedure today; however, he was not made aware of this appointment so he did not attend. I encouraged him to follow-up with his Worker's Comp block and case maker and the surgeon's office. The patient is discharged from this physical therapy plan of care. Electronically signed by: Jennifer Villarreal PT, DPT Please sign and return to therapist. Thank you for your referral.
== END 2025-09-09 13:03 | disposition home or self-care (01) ==
LOC: HO.PT 08:44
PROVIDERS: Visit Provider Emergency Medicine
DX: M51.27 Other intervertebral disc displacement, lumbosacral region (principal)
CPT/HCPCS: 97110; 97112; 97140; 97162